=== PATIENT | male | born 1995 | race African-American/Black ===

== ENCOUNTER 2025-01-15 23:25 | Emergency (ER) | payer MEDICAID ==
[~2025-01-15] VITALS: Ht 177.8 cm; Wt 86.2 kg
[2025-01-15 23:27] VITALS: TEMP 36.8; O2SAT 99
[2025-01-15] MEDS ORDERED: KETOROLAC 15MG/ML VIAL IM ONE (23:45)
[2025-01-16] MEDS: HYDROCODONE/ACETAMINOPHEN 5/325MG TABLET PO ONE (01:39)
[2025-01-16] MEDS ORDERED: ACET-2708 MT (01:40)
[2025-01-16 01:55] VITALS: BP 118/52; PULSE 63; RESP 16; O2SAT 99
[2025-01-16 01:57] LABS: CLARITY URINE CLEAR (CLEAR); COLOR URINE YELLOW (YELLOW); GLUCOSE URINE NEGATIVE (NEGATIVE); KETONES URINE TRACE (NEGATIVE); LEUKOCYTE ESTERASE URINE 2+ (NEGATIVE); NITRITE URINE NEGATIVE (NEGATIVE); OCCULT BLOOD URINE NEGATIVE (NEGATIVE); PH URINE 6.5 (4.5-8.0); PROTEIN URINE NEGATIVE (NEGATIVE); SPECIFIC GRAVITY URINE 1.023 (1.005-1.030); UROBILINOGEN URINE 1.0 E.U./dL (0.2-1.0)
[2025-01-16 05:13] LABS: SQUAMOUS EPITHELIAL CELL URINE FEW /lpf (RARE/1+)
[2025-01-16 05:15] LABS: BACTERIA URINE NONE SEEN; RBC URINE 0-2 /hpf (0-2)
== END 2025-01-16 01:55 | disposition home or self-care (01) ==
LOC: ER 23:50
DX: N43.3 Hydrocele, unspecified (principal); I86.1 Scrotal varices; Z88.6 Allergy status to analgesic agent
CPT/HCPCS: 76870; 81003; 93976; 99284; J1885